=== PATIENT | female | born 1995 | race African-American/Black ===

== ENCOUNTER 2020-02-19 18:09 | Emergency (ER) | payer OTHER ==
[~2020-02-19] VITALS: Ht 160 cm; Wt 72.6 kg
[~2020-02-19 18:09] MED LIST: BACTRIM DS TAB1 EACH PO
[2020-02-19 18:16] VITALS: BP 136/63
== END 2020-02-19 18:40 | disposition left against medical advice (07) ==
LOC: ER 18:09
DX: R05 Cough (principal); R09.89 Other specified symptoms and signs involving the circulatory and respiratory systems; Z53.21 Procedure and treatment not carried out due to patient leaving prior to being seen by health care provider